=== PATIENT | female | born 1945 | race Caucasian/White ===

== ENCOUNTER 2020-07-19 14:40 | Observation (INO) ==
[2020-07-19] MEDS ORDERED: ONDANSETRON 4 MG/2 ML VIAL IV PRN (14:42)
[2020-07-19] MEDS ORDERED: DOCUSATE SODIUM 100 MG CAPSULE PO PRN (14:42)
[2020-07-19] MEDS ORDERED: NICOTINE 7 MG/24 HR PATCH TRANSDERM PRN (14:52)
[2020-07-19] MEDS: PANTOPRAZOLE 40 MG TABLET PO SCH (18:21)
[2020-07-19 18:25] LABS: Basophils # 0.1 10*3/uL (0.0-0.2); Basophils % 1.2 % (0.0-0.8); Eosinophils # 0.2 10*3/uL (0.0-0.87); Eosinophils % 1.6 % (0.00-10.9); Hematocrit 52.3 VOL% (35.7-47.0); Hemoglobin 18.2 GM/DL (12.0-16.0); Immature Granulocytes % 0.5 %; Immature Granulocytes Absolute 0.05 #; Lymphocytes # 1.2 10*3/uL (1.4-4.0); Lymphocytes % 11.9 % (21.3-54.2); Mean Corpuscular HGB Conc 34.8 GM/DL (32-36); Mean Corpuscular Volume 94.6 FL (87-102); Mean Platelet Volume 10.4 FL (9.6-12.0); Monocytes % 10.2 % (1.7-12.7); Neutrophils % 74.6 % (38.7-73.9); Platelet Count 353 T/CUMM (130-400); Red Blood Count 5.53 MC/CUMM (3.8-5.5); Red Cell Distribution Width 15.4 % (9.3-17.3); White Blood Count 10.2 T/CUMM (4-12)
[2020-07-19] MEDS ORDERED: traMADol 50 MG TABLET PO PRN (18:28)
[2020-07-19 18:48] LABS: Bilirubin,Total 0.5 MG/DL (0.2-1.0); Calcium 10.6 MG/DL (8.5-10.1); Osmolality,Calculated 264.4 MOS/KG (273-304); Total Protein 8.4 G/DL (6.4-8.3)
[2020-07-19 18:50] LABS: Troponin I < 0.015 NG/ML (0.00-0.045)
[2020-07-19] MEDS ORDERED: ENOXAPARIN 40 MG/0.4 ML SYRINGE SUBCUT SCH (21:00)
[2020-07-19] MEDS: GABAPENTIN 300 MG CAPSULE PO SCH (22:19)
[2020-07-19] MEDS: SODIUM CHLORIDE 0.9% 1,000 ML IV SCH (22:29)
[2020-07-19] MEDS: ACETAMINOPHEN 325 MG TABLET PO PRN (22:42)
[2020-07-20 05:58] LABS: Risk Ratio 1.95; VLDL CHOLESTEROL 17.4 MG/DL
[2020-07-20] MEDS ORDERED: hydroCHLOROthiazide 25 MG TABLET PO SCH (09:00)
[2020-07-20] MEDS: GABAPENTIN 300 MG CAPSULE PO SCH (11:52)
[2020-07-20] MEDS: PANTOPRAZOLE 40 MG TABLET PO SCH (11:52)
[2020-07-20] MEDS: SODIUM CHLORIDE 0.9% 1,000 ML IV SCH (12:02)
[2020-07-20] MEDS ORDERED: ASPIRIN EC 81 MG TABLET PO SCH (13:00)
[2020-07-20 13:18] VITALS: BP 148/82
[2020-07-20] MEDS: ACETAMINOPHEN 325 MG TABLET PO PRN (13:26)
[2020-07-20] MEDS ORDERED: GABAPENTIN 300 MG CAPSULE PO SCH (15:00)
[2020-07-20] MEDS ORDERED: amLODIPine 10 MG TABLET PO SCH (16:00)
[2020-07-20] MEDS ORDERED: SIMVASTATIN 10 MG TABLET PO SCH (16:00)
== END 2020-07-20 15:29 | disposition home or self-care (01) ==
LOC: N.TELES
PROVIDERS: ADMIT Family Medicine; ATTEND Family Medicine

== ENCOUNTER 2020-08-16 12:32 | Observation (INO) ==
[2020-08-16 16:56] LABS: Basophils # 0.1 10*3/uL (0.0-0.2); Basophils % 0.8 % (0.0-0.8); Eosinophils # 0.1 10*3/uL (0.0-0.87); Eosinophils % 0.8 % (0.00-10.9); Hematocrit 48.5 VOL% (35.7-47.0); Immature Granulocytes % 0.5 %; Immature Granulocytes Absolute 0.05 #; Lymphocytes % 10.7 % (21.3-54.2); Mean Corpuscular HGB Conc 35.1 GM/DL (32-36); Mean Corpuscular Volume 94.9 FL (87-102); Mean Platelet Volume 9.7 FL (9.6-12.0); Neutrophils % 75.2 % (38.7-73.9); Platelet Count 421 T/CUMM (130-400); Red Blood Count 5.11 MC/CUMM (3.8-5.5); Red Cell Distribution Width 15.1 % (9.3-17.3); White Blood Count 9.5 T/CUMM (4-12)
[2020-08-16 17:14] LABS: Albumin 3.7 G/DL (3.4-5.0); Bilirubin,Total 0.5 MG/DL (0.2-1.0); Calcium 9.7 MG/DL (8.5-10.1); Osmolality,Calculated 257.9 MOS/KG (273-304); Total Protein 7.7 G/DL (6.4-8.3)
[2020-08-16] MEDS ORDERED: ASPIRIN CHEW 81 MG TABLET PO STA (18:09)
[2020-08-16 18:56] LABS: INR 1.1; PT Patient Result 11.4 SECS (9.8-11.9); Partial Thromboplastin Time 32.7 SECS (23.9-33.8)
[2020-08-16] MEDS ORDERED: ENOXAPARIN 60 MG/0.6 ML SYRINGE SUBCUT STA (20:15)
[2020-08-16] MEDS ORDERED: MAGNESIUM SULF RIDER 2 GM in PREMIX 1 EACH IV PRN (20:15)
[2020-08-16] MEDS ORDERED: PANTOPRAZOLE 40 MG VIAL IV STA (20:15)
[2020-08-16] MEDS ORDERED: NITROGLYCERIN 2% OINT 1 INCH/GM PACK TOP STA (20:15)
[2020-08-16] MEDS ORDERED: MAGNESIUM SULF RIDER 4 GM in PREMIX 1 EACH IV PRN (20:15)
[2020-08-17] MEDS ORDERED: SODIUM CHLORIDE 0.9% 1,000 ML IV SCH (07:30)
[2020-08-17] MEDS ORDERED: diphenhydrAMINE CAP 25 MG CAPSULE PO ONE (07:32)
[2020-08-17] MEDS ORDERED: DIAZEPAM 5 MG TABLET PO ONE (07:32)
[2020-08-17] MEDS ORDERED: POTASSIUM CHLORIDE RIDER 10 MEQ in PREMIX 1 EACH IV PRN (07:32)
[2020-08-17] MEDS ORDERED: NITROGLYCERIN SL 0.4 MG TABLET SL PRN (07:34)
[2020-08-17] MEDS ORDERED: traMADol 50 MG TABLET PO PRN (07:34)
[2020-08-17] MEDS ORDERED: ZALEPLON 5 MG CAPSULE PO PRN (07:35)
[2020-08-17] MEDS ORDERED: hydrALAZINE 20 MG/1 ML VIAL IV PRN (07:35)
[2020-08-17] MEDS ORDERED: BISACODYL 5 MG TABLET PO PRN (07:35)
[2020-08-17] MEDS ORDERED: MORPHINE 4 MG/1 ML VIAL IV PRN (07:35)
[2020-08-17] MEDS ORDERED: ALUMINUM/MAGNES/SIMETH MAX STR 30 ML UDCUP PO PRN (07:35)
[2020-08-17] MEDS ORDERED: PROMETHAZINE 25 MG TABLET PO PRN (07:35)
[2020-08-17] MEDS ORDERED: guaiFENesin/DM ER 600-30 MG TABLET PO PRN (07:35)
[2020-08-17] MEDS ORDERED: ONDANSETRON 4 MG/2 ML VIAL IV PRN (07:35)
[2020-08-17] MEDS: NITROGLYCERIN 2% OINT 1 INCH/GM PACK TOP SCH ×4 (08:04→17:07)
[2020-08-17] MEDS ORDERED: LIDOCAINE 1% 20 ML VIAL ONE ×2 (08:47→09:32)
[2020-08-17] MEDS ORDERED: fentaNYL 100 MCG/2 ML VIAL ONE (08:47)
[2020-08-17] MEDS ORDERED: MIDAZOLAM 2 MG/2 ML VIAL ONE (08:47)
[2020-08-17] MEDS ORDERED: amLODIPine 5 MG TABLET PO SCH (09:00)
[2020-08-17] MEDS ORDERED: METOPROLOL TARTRATE 25 MG TABLET PO SCH (09:00)
[2020-08-17] MEDS ORDERED: HYDROmorphone 2 MG/1 ML VIAL ONE (09:13)
[2020-08-17] MEDS ORDERED: HEPARIN 5,000 UNIT/1 ML VIAL ONE (09:54)
[2020-08-17] MEDS: GABAPENTIN 300 MG CAPSULE PO SCH ×3 (12:49→21:21)
[2020-08-17] MEDS: PANTOPRAZOLE 40 MG TABLET PO SCH (12:59)
[2020-08-17] MEDS: LOSARTAN 25 MG TABLET PO SCH (13:00)
[2020-08-17] MEDS: ASPIRIN EC 81 MG TABLET PO SCH (13:00)
[2020-08-17] MEDS: CYANOCOBALAMIN 500 MCG TABLET PO SCH (13:00)
[2020-08-17] MEDS: atenoloL 25 MG TABLET PO SCH ×2 (13:00→21:27)
[2020-08-17] MEDS: CLOPIDOGREL 75 MG TABLET PO SCH (13:00)
[2020-08-17] MEDS: MELOXICAM 7.5 MG TABLET PO SCH (13:02)
[2020-08-17] MEDS ORDERED: CHOLECALCIFEROL 5,000 UNIT TABLET PO SCH (21:00)
[2020-08-17] MEDS: CALCIUM (CARBONATE)/VITAMIN D 600 MG-400 UNIT TABLET PO SCH (21:21)
[2020-08-17] MEDS: ACETAMINOPHEN 500 MG TABLET PO SCH (21:22)
[2020-08-18 06:13] LABS: Osmolality,Calculated 267.4 MOS/KG (273-304)
[2020-08-18 06:16] LABS: Basophils # 0.1 10*3/uL (0.0-0.2); Basophils % 0.7 % (0.0-0.8); Eosinophils # 0.2 10*3/uL (0.0-0.87); Eosinophils % 2.9 % (0.00-10.9); Immature Granulocytes % 0.5 %; Immature Granulocytes Absolute 0.04 #; Lymphocytes # 1.1 10*3/uL (1.4-4.0); Lymphocytes % 13.1 % (21.3-54.2); Mean Corpuscular HGB Conc 33.8 GM/DL (32-36); Mean Corpuscular Volume 97.3 FL (87-102); Mean Platelet Volume 9.8 FL (9.6-12.0); Monocytes % 13.1 % (1.7-12.7); Neutrophils % 69.7 % (38.7-73.9); Platelet Count 341 T/CUMM (130-400); Red Cell Distribution Width 15.7 % (9.3-17.3); White Blood Count 8.2 T/CUMM (4-12)
[2020-08-18 06:21] LABS: Hemoglobin 13.2 GM/DL (12.0-16.0); Red Blood Count 4.01 MC/CUMM (3.8-5.5)
[2020-08-18] MEDS ORDERED: MULTIVITAMIN (CENTRUM) TABLET PO SCH (09:00)
[2020-08-18] MEDS ORDERED: SIMVASTATIN 10 MG TABLET PO SCH (09:00)
[2020-08-18] MEDS ORDERED: PYRIDOXINE 100 MG TABLET PO SCH (09:00)
[2020-08-18] MEDS ORDERED: MAGNESIUM SULF RIDER 2 GM in PREMIX 1 EACH IV ONE (09:01)
[2020-08-18] MEDS ORDERED: POTASSIUM CHLORIDE 20 MEQ TABLET PO ONE (09:01)
[2020-08-18] MEDS: CALCIUM (CARBONATE)/VITAMIN D 600 MG-400 UNIT TABLET PO SCH (09:22)
[2020-08-18] MEDS: GABAPENTIN 300 MG CAPSULE PO SCH ×2 (09:22→14:34)
[2020-08-18] MEDS: CLOPIDOGREL 75 MG TABLET PO SCH (09:23)
[2020-08-18] MEDS: CYANOCOBALAMIN 500 MCG TABLET PO SCH (09:23)
[2020-08-18] MEDS: PANTOPRAZOLE 40 MG TABLET PO SCH (09:23)
[2020-08-18] MEDS: LOSARTAN 25 MG TABLET PO SCH (09:24)
[2020-08-18] MEDS: MELOXICAM 7.5 MG TABLET PO SCH (09:24)
[2020-08-18] MEDS: ASPIRIN EC 81 MG TABLET PO SCH (09:24)
[2020-08-18] MEDS: atenoloL 25 MG TABLET PO SCH (09:24)
[2020-08-18] MEDS: ACETAMINOPHEN 500 MG TABLET PO SCH (12:29)
[2020-08-18 16:38] VITALS: BP 130/65
== END 2020-08-18 16:20 | disposition home or self-care (01) ==
LOC: N.ED 12:32 → N.EDINP 12:32 → N.TELES 08-17 08:30
PROVIDERS: ADMIT Internal Medicine Cardiovascular Disease; ATTEND Internal Medicine Cardiovascular Disease
PROC: CLCCHCL (ICD-10-PCS; 2020-08-17 08:15)

== ENCOUNTER 2021-01-05 06:53 | Inpatient (IN) ==
[2020-12-31 12:04] LABS: Basophils # 0.1 10*3/uL (0.0-0.2); Basophils % 1.4 % (0.0-0.8); Eosinophils # 0.2 10*3/uL (0.0-0.87); Eosinophils % 3.9 % (0.00-10.9); Hematocrit 40.8 VOL% (35.7-47.0); Hemoglobin 12.9 GM/DL (12.0-16.0); Immature Granulocytes % 0.3 %; Immature Granulocytes Absolute 0.02 #; Lymphocytes # 1.1 10*3/uL (1.4-4.0); Lymphocytes % 17.8 % (21.3-54.2); Mean Corpuscular HGB Conc 31.6 GM/DL (32-36); Mean Corpuscular Volume 99.8 FL (87-102); Neutrophils % 62.6 % (38.7-73.9); Platelet Count 316 T/CUMM (130-400); Red Blood Count 4.09 MC/CUMM (3.8-5.5); Red Cell Distribution Width 15.6 % (9.3-17.3); White Blood Count 5.9 T/CUMM (4-12)
[2020-12-31 12:24] LABS: Alanine Aminotransferase 14 U/L (13-56); Albumin 3.6 G/DL (3.4-5.0); Alkaline Phosphatase 74 U/L (45-117); Aspartate Amino Transferase 15 U/L (0-37); Bilirubin,Total < 0.39 MG/DL (0.2-1.0); Blood Urea Nitrogen 13 MG/DL (7-18); Calcium 9.1 MG/DL (8.5-10.1); Carbon Dioxide 29 MMOL/L (21-32); Estimated Glom Filtration Rate 81 ML/MIN; Glucose 108 MG/DL (74-106); Osmolality,Calculated 277.5 MOS/KG (273-304); Sodium 139 MMOL/L (136-145); Total Protein 6.8 G/DL (6.4-8.2)
[2020-12-31 12:53] LABS: PT Patient Result 11.5 SECS (9.8-11.9)
[~2021-01-05 06:53] MED LIST: LIDOCAINE 2% 5 ML VIAL ONE; MIDAZOLAM 2 MG/2 ML VIAL ONE; ROCURONIUM 50 MG/5 ML VIAL IV ONE; ceFAZolin 2,000 MG in PREMIX 1 EACH IV ONE; fentaNYL 100 MCG/2 ML VIAL ONE; propofoL 200 MG/20 ML VIAL IV ONE
[2021-01-05] MEDS ORDERED: DIAZEPAM 5 MG TABLET PO ONE (07:06)
[2021-01-05] MEDS ORDERED: GABAPENTIN 400 MG CAPSULE PO ONE (07:06)
[2021-01-05] MEDS ORDERED: FAMOTIDINE 20 MG TABLET PO ONE (07:06)
[2021-01-05] MEDS ORDERED: ACETAMINOPHEN 500 MG TABLET PO ONE (07:06)
[2021-01-05] MEDS ORDERED: ALBUTEROL/IPRATROPIUM 3 ML NEB RESP TX STA (07:11)
[2021-01-05] MEDS ORDERED: LACTATED RINGERS 1,000 ML IV SCH (08:00)
[2021-01-05] MEDS ORDERED: ROPIVACAINE 0.5% 30 ML VIAL ONE (08:17)
[2021-01-05] MEDS ORDERED: DEXAMETHASONE 4 MG/1 ML VIAL ONE ×2 (08:17→10:18)
[2021-01-05] MEDS ORDERED: LIDOCAINE 1% 5 ML VIAL ONE (08:21)
[2021-01-05] MEDS ORDERED: BUPIVACAINE 0.5% 50 ML VIAL ONE (08:40)
[2021-01-05] MEDS ORDERED: TISSUE ADHESIVE 1 EACH APPLICATOR TOP ONE (08:40)
[2021-01-05] MEDS ORDERED: VANCOMYCIN 500 MG VIAL ONE (08:40)
[2021-01-05] MEDS ORDERED: HEPARIN 5,000 UNIT/1 ML VIAL ONE ×2 (08:40→08:41)
[2021-01-05] MEDS ORDERED: ePHEDrine 50 MG/ML VIAL ONE (09:12)
[2021-01-05] MEDS ORDERED: HEPARIN 10,000 UNIT/10 ML VIAL ONE (09:19)
[2021-01-05] MEDS ORDERED: PHENYLEPHRINE 1 MG/10 ML SYRINGE IV ONE (10:17)
[2021-01-05] MEDS ORDERED: ONDANSETRON 4 MG/2 ML VIAL ONE (10:18)
[2021-01-05] MEDS ORDERED: NEOSTIGMINE 10 MG/10 ML VIAL ONE ×3 (10:20→10:21)
[2021-01-05] MEDS ORDERED: GLYCOPYRROLATE 0.4 MG/2 ML VIAL ONE (10:20)
[2021-01-05] MEDS ORDERED: ONDANSETRON 4 MG/2 ML VIAL IV PRN ×2 (10:41→11:20)
[2021-01-05] MEDS ORDERED: traMADol 50 MG TABLET PO PRN (10:44)
[2021-01-05] MEDS ORDERED: NON-FORMULARY MEDICATION (Umeclidinium [Incruse Ellipta] 62.5 mcg/actuation Blister With D INH PRN (10:44)
[2021-01-05] MEDS ORDERED: NITROGLYCERIN SL 0.4 MG TABLET SL PRN (10:44)
[2021-01-05] MEDS ORDERED: HYDROmorphone 2 MG/1 ML VIAL ONE (11:09)
[2021-01-05] MEDS ORDERED: HYDROmorphone 2 MG/1 ML VIAL IV PRN (11:20)
[2021-01-05] MEDS: LACTATED RINGERS 1,000 ML IV SCH ×2 (11:50→23:52)
[2021-01-05] MEDS: CALCIUM (CITRATE)/VITAMIN D 200 MG-125 UNIT TABLET PO SCH (16:31)
[2021-01-05] MEDS: PANTOPRAZOLE 40 MG TABLET PO SCH (16:31)
[2021-01-05] MEDS: GABAPENTIN 300 MG CAPSULE PO SCH ×2 (16:31→21:28)
[2021-01-05] MEDS ORDERED: ROSUVASTATIN 20 MG TABLET PO SCH (21:00)
[2021-01-05] MEDS: ACETAMINOPHEN 325 MG TABLET PO SCH (21:28)
[2021-01-05] MEDS: cilostazoL 50 MG TABLET PO SCH (21:28)
[2021-01-06] MEDS ORDERED: ENOXAPARIN 40 MG/0.4 ML SYRINGE SUBCUT SCH (05:00)
[2021-01-06] MEDS: LACTATED RINGERS 1,000 ML IV SCH (06:18)
[2021-01-06 06:36] LABS: Hematocrit 34.4 VOL% (35.7-47.0); Hemoglobin 10.7 GM/DL (12.0-16.0)
[2021-01-06 06:52] LABS: Calcium 8.8 MG/DL (8.5-10.1); Osmolality,Calculated 275.5 MOS/KG (273-304); Potassium 4.1 MMOL/L (3.5-5.1)
[2021-01-06] MEDS ORDERED: IRON (CARBONYL) 45 MG TABLET PO SCH (08:00)
[2021-01-06] MEDS ORDERED: atenoloL 25 MG TABLET PO SCH (09:00)
[2021-01-06] MEDS ORDERED: ASPIRIN EC 81 MG TABLET PO SCH (09:00)
[2021-01-06] MEDS ORDERED: MONTELUKAST 10 MG TABLET PO SCH (09:00)
[2021-01-06] MEDS ORDERED: CLOPIDOGREL 75 MG TABLET PO SCH (09:00)
[2021-01-06] MEDS ORDERED: DOCUSATE SODIUM 100 MG CAPSULE PO SCH (09:00)
[2021-01-06] MEDS ORDERED: FUROSEMIDE 40 MG TABLET PO SCH (09:00)
[2021-01-06] MEDS ORDERED: Umeclidinium-Vilanterol [Anoro Ellipta] 62.5-25 mcg/actuation Bl INH SCH (09:00)
[2021-01-06] MEDS ORDERED: CHOLECALCIFEROL 5,000 UNIT TABLET PO SCH (09:00)
[2021-01-06] MEDS: CALCIUM (CITRATE)/VITAMIN D 200 MG-125 UNIT TABLET PO SCH (09:41)
[2021-01-06] MEDS: GABAPENTIN 300 MG CAPSULE PO SCH (09:41)
[2021-01-06] MEDS: ACETAMINOPHEN 325 MG TABLET PO SCH (09:41)
[2021-01-06] MEDS: PANTOPRAZOLE 40 MG TABLET PO SCH (09:42)
[2021-01-06] MEDS: cilostazoL 50 MG TABLET PO SCH (09:42)
[2021-01-06 11:54] VITALS: BP 114/62
[2021-01-06] MEDS ORDERED: CYANOCOBALAMIN 500 MCG TABLET PO SCH (12:00)
[2021-01-06] MEDS ORDERED: MULTIVITAMIN (CENTRUM) TABLET PO SCH (13:00)
== END 2021-01-06 15:10 | disposition home or self-care (01) | DRG 272 ==
LOC: N.OR 06:53 → N.SDSINP 06:56 → N.3E 11:50
PROVIDERS: ADMIT Surgery; ATTEND Surgery

== ENCOUNTER 2022-06-26 14:45 | Inpatient (IN) ==
[2022-06-26] MEDS ORDERED: ACETAMINOPHEN 325 MG TABLET PO PRN (14:54)
[2022-06-26] MEDS ORDERED: ONDANSETRON 4 MG/2 ML VIAL IV PRN (14:54)
[2022-06-26] MEDS ORDERED: DOCUSATE SODIUM 100 MG CAPSULE PO PRN (14:56)
[2022-06-26] MEDS ORDERED: traMADol 50 MG TABLET PO PRN (15:27)
[2022-06-26 16:29] LABS: Basophils # 0.1 10*3/uL (0.0-0.2); Basophils % 1.1 % (0.0-0.8); Eosinophils # 0.1 10*3/uL (0.0-0.87); Eosinophils % 1.8 % (0.00-10.9); Hematocrit 53.8 VOL% (35.7-47.0); Immature Granulocytes % 0.4 %; Immature Granulocytes Absolute 0.02 #; Lymphocytes # 1.1 10*3/uL (1.4-4.0); Lymphocytes % 20.5 % (21.3-54.2); Mean Corpuscular HGB Conc 31.6 GM/DL (32-36); Mean Corpuscular Volume 104.9 FL (87-102); Monocytes # 0.9 10*3/uL (0.11-0.8); Monocytes % 16.5 % (1.7-12.7); Neutrophils % 59.7 % (38.7-73.9); Platelet Count 237 T/CUMM (130-400); Red Blood Count 5.13 MC/CUMM (3.8-5.5); Red Cell Distribution Width 17.6 % (9.3-17.3); White Blood Count 5.5 T/CUMM (4-12)
[2022-06-26 16:50] LABS: Bilirubin,Total 0.9 MG/DL (0.20-1.00); Calcium 10.5 MG/DL (8.5-10.1); Potassium 3.9 MMOL/L (3.5-5.1); Total Protein 7.3 G/DL (6.4-8.2)
[2022-06-26 16:53] LABS: Vitamin B12 > 2000 PG/ML (211-911)
[2022-06-26] MEDS ORDERED: NITROGLYCERIN SL 0.4 MG TABLET SL PRN (17:03)
[2022-06-26 17:08] LABS: Band Neutrophils 3 % (0-10); Eosinophils 2 % (0-10); Lymphocytes 22 % (20-55); Total Cells Counted 100
[2022-06-26 17:09] LABS: Macrocytosis Slight; Platelet Estimate Normal
[2022-06-26] MEDS: SODIUM CHLORIDE 0.9% 1,000 ML IV SCH (18:47)
[2022-06-26] MEDS: methylPREDNISolone SOD SUC 40 MG/1 ML VIAL IV SCH (18:47)
[2022-06-26] MEDS: ALBUTEROL/IPRATROPIUM 3 ML NEB RESP TX SCH (19:00)
[2022-06-26] MEDS: ROSUVASTATIN 20 MG TABLET PO SCH (21:03)
[2022-06-26] MEDS: GABAPENTIN 300 MG CAPSULE PO SCH (21:03)
[2022-06-26] MEDS: cilostazoL 100 MG TABLET PO SCH (21:03)
[2022-06-27] MEDS: ALBUTEROL/IPRATROPIUM 3 ML NEB RESP TX SCH ×4 (01:06→19:30)
[2022-06-27] MEDS: methylPREDNISolone SOD SUC 40 MG/1 ML VIAL IV SCH ×3 (01:07→17:02)
[2022-06-27 05:23] LABS: Basophils % 0.4 % (0.0-0.8); Hematocrit 47.4 VOL% (35.7-47.0); Hemoglobin 15.1 GM/DL (12.0-16.0); Immature Granulocytes % 0.4 %; Immature Granulocytes Absolute 0.01 #; Lymphocytes # 0.3 10*3/uL (1.4-4.0); Lymphocytes % 12.3 % (21.3-54.2); Mean Corpuscular HGB Conc 31.9 GM/DL (32-36); Mean Corpuscular Volume 104.2 FL (87-102); Monocytes # 0.1 10*3/uL (0.11-0.8); Monocytes % 3.8 % (1.7-12.7); Neutrophils % 83.1 % (38.7-73.9); Platelet Count 196 T/CUMM (130-400); Red Blood Count 4.55 MC/CUMM (3.8-5.5); Red Cell Distribution Width 16.8 % (9.3-17.3); White Blood Count 2.6 T/CUMM (4-12)
[2022-06-27 05:42] LABS: Blood Urea Nitrogen 24 MG/DL (7-18); Calcium 9.4 MG/DL (8.5-10.1); Carbon Dioxide 31 MMOL/L (21-32); Chloride 99 MMOL/L (98-107); Glucose 151 MG/DL (74-106); Sodium 136 MMOL/L (136-145)
[2022-06-27 05:54] LABS: Bilirubin,Urine Negative (Negative); Blood, Urine Small mg/dL (Negative); Glucose,Urine (UA) Negative (Negative); Hyaline Casts,Urine 3 /LPF (0-3); Ketones,Urine Negative (Negative); Mucus,Urine Occasional /LPF (Occasional); Nitrite,Urine Negative (Negative); Protein,Urine 100 mg/dL (Negative); RBC,Urine 1 /HPF (0-4); Squamous Epithelial Cell,Urine Occasional /HPF (0-10); Urine Appearance Slightly Hazy (Clear); Urine Color Yellow (Yellow); Urine Specific Gravity 1.018 (1.001-1.035)
[2022-06-27] MEDS ORDERED: POTASSIUM CHLORIDE 20 MEQ TABLET PO ONE ×2 (06:42→07:30)
[2022-06-27] MEDS ORDERED: MONTELUKAST 10 MG TABLET PO SCH (09:00)
[2022-06-27] MEDS: ASPIRIN EC 81 MG TABLET PO SCH (09:42)
[2022-06-27] MEDS: CLOPIDOGREL 75 MG TABLET PO SCH (09:42)
[2022-06-27] MEDS: DOCUSATE SODIUM 100 MG CAPSULE PO SCH (09:42)
[2022-06-27] MEDS: GABAPENTIN 300 MG CAPSULE PO SCH ×3 (09:42→20:34)
[2022-06-27] MEDS: PANTOPRAZOLE 40 MG TABLET PO SCH (09:42)
[2022-06-27] MEDS: cilostazoL 100 MG TABLET PO SCH ×2 (09:42→20:35)
[2022-06-27] MEDS: FUROSEMIDE 80 MG TABLET PO SCH (09:42)
[2022-06-27] MEDS: atenoloL 25 MG TABLET PO SCH (09:45)
[2022-06-27] MEDS: metOLazone 2.5 MG TABLET PO SCH (09:45)
[2022-06-27] MEDS: OLODATEROL INH SCH (09:46)
[2022-06-27] MEDS: ACTUATION MIST INH SCH (09:46)
[2022-06-27] MEDS ORDERED: ALBUTEROL/IPRATROPIUM 3 ML NEB RESP TX PRN (10:49)
[2022-06-27] MEDS: cefTRIAXone 1,000 MG in SODIUM CHLORIDE 0.9% 100 ML IV SCH (13:14)
[2022-06-27] MEDS: SODIUM CHLORIDE 0.9% 1,000 ML IV SCH (17:49)
[2022-06-27] MEDS: ROSUVASTATIN 20 MG TABLET PO SCH (20:34)
[2022-06-27] MEDS: MONTELUKAST 10 MG TABLET PO SCH (20:35)
[2022-06-28] MEDS: ALBUTEROL/IPRATROPIUM 3 ML NEB RESP TX SCH ×4 (00:30→20:05)
[2022-06-28] MEDS: methylPREDNISolone SOD SUC 40 MG/1 ML VIAL IV SCH ×3 (01:23→17:05)
[2022-06-28 04:59] LABS: Hematocrit 47.6 VOL% (35.7-47.0); Hemoglobin 15.1 GM/DL (12.0-16.0); Immature Granulocytes % 0.2 %; Immature Granulocytes Absolute 0.01 #; Lymphocytes # 0.4 10*3/uL (1.4-4.0); Lymphocytes % 7.6 % (21.3-54.2); Mean Corpuscular HGB Conc 31.7 GM/DL (32-36); Mean Corpuscular Volume 104.4 FL (87-102); Monocytes # 0.4 10*3/uL (0.11-0.8); Neutrophils % 84.2 % (38.7-73.9); Platelet Count 205 T/CUMM (130-400); Red Blood Count 4.56 MC/CUMM (3.8-5.5); Red Cell Distribution Width 17.1 % (9.3-17.3); White Blood Count 4.9 T/CUMM (4-12)
[2022-06-28 05:17] LABS: Calcium 9.7 MG/DL (8.5-10.1); Osmolality,Calculated 281.7 MOS/KG (273-304); Potassium 3.6 MMOL/L (3.5-5.1)
[2022-06-28] MEDS: DOCUSATE SODIUM 100 MG CAPSULE PO SCH (09:28)
[2022-06-28] MEDS: GABAPENTIN 300 MG CAPSULE PO SCH ×3 (09:29→20:26)
[2022-06-28] MEDS: MONTELUKAST 10 MG TABLET PO SCH ×2 (09:29→20:26)
[2022-06-28] MEDS: PANTOPRAZOLE 40 MG TABLET PO SCH (09:29)
[2022-06-28] MEDS: FUROSEMIDE 80 MG TABLET PO SCH (09:30)
[2022-06-28] MEDS: ASPIRIN EC 81 MG TABLET PO SCH (09:30)
[2022-06-28] MEDS: metOLazone 2.5 MG TABLET PO SCH (09:30)
[2022-06-28] MEDS: CLOPIDOGREL 75 MG TABLET PO SCH (09:30)
[2022-06-28] MEDS: atenoloL 25 MG TABLET PO SCH (09:30)
[2022-06-28] MEDS: cefTRIAXone 1,000 MG in SODIUM CHLORIDE 0.9% 100 ML IV SCH (09:33)
[2022-06-28] MEDS: cilostazoL 100 MG TABLET PO SCH ×2 (09:34→20:26)
[2022-06-28] MEDS: OLODATEROL INH SCH (09:35)
[2022-06-28] MEDS: ACTUATION MIST INH SCH (09:35)
[2022-06-28] MEDS: SODIUM CHLORIDE 0.9% 1,000 ML IV SCH (09:43)
[2022-06-28] MEDS ORDERED: FUROSEMIDE 100 MG/10 ML VIAL IV ONE (13:00)
[2022-06-28] MEDS: POTASSIUM CHLORIDE 20 MEQ TABLET PO SCH ×2 (13:47→20:26)
[2022-06-28] MEDS: ROSUVASTATIN 20 MG TABLET PO SCH (20:26)
[2022-06-29] MEDS: ALBUTEROL/IPRATROPIUM 3 ML NEB RESP TX SCH ×2 (01:36→07:35)
[2022-06-29] MEDS: methylPREDNISolone SOD SUC 40 MG/1 ML VIAL IV SCH ×2 (02:15→09:48)
[2022-06-29 06:03] LABS: Basophils % 0.2 % (0.0-0.8); Hematocrit 47.3 VOL% (35.7-47.0); Hemoglobin 15.3 GM/DL (12.0-16.0); Immature Granulocytes % 0.5 %; Immature Granulocytes Absolute 0.03 #; Lymphocytes # 0.4 10*3/uL (1.4-4.0); Lymphocytes % 6.9 % (21.3-54.2); Mean Corpuscular HGB Conc 32.3 GM/DL (32-36); Mean Corpuscular Volume 102.6 FL (87-102); Mean Platelet Volume 10.2 FL (9.6-12.0); Monocytes # 0.6 10*3/uL (0.11-0.8); Monocytes % 10.8 % (1.7-12.7); Neutrophils % 81.6 % (38.7-73.9); Platelet Count 199 T/CUMM (130-400); Red Blood Count 4.61 MC/CUMM (3.8-5.5); Red Cell Distribution Width 16.4 % (9.3-17.3); White Blood Count 5.5 T/CUMM (4-12)
[2022-06-29 06:20] LABS: Calcium 9.7 MG/DL (8.5-10.1); Osmolality,Calculated 273.4 MOS/KG (273-304); Potassium 3.2 MMOL/L (3.5-5.1)
[2022-06-29] MEDS: cefTRIAXone 1,000 MG in SODIUM CHLORIDE 0.9% 100 ML IV SCH (09:44)
[2022-06-29] MEDS: GABAPENTIN 300 MG CAPSULE PO SCH (09:45)
[2022-06-29] MEDS: cilostazoL 100 MG TABLET PO SCH (09:45)
[2022-06-29] MEDS: POTASSIUM CHLORIDE 20 MEQ TABLET PO SCH (09:45)
[2022-06-29] MEDS: metOLazone 2.5 MG TABLET PO SCH (09:46)
[2022-06-29] MEDS: CLOPIDOGREL 75 MG TABLET PO SCH (09:46)
[2022-06-29] MEDS: FUROSEMIDE 80 MG TABLET PO SCH (09:46)
[2022-06-29] MEDS: MONTELUKAST 10 MG TABLET PO SCH (09:46)
[2022-06-29] MEDS: atenoloL 25 MG TABLET PO SCH (09:46)
[2022-06-29] MEDS: ASPIRIN EC 81 MG TABLET PO SCH (09:47)
[2022-06-29] MEDS: DOCUSATE SODIUM 100 MG CAPSULE PO SCH (09:48)
[2022-06-29] MEDS: PANTOPRAZOLE 40 MG TABLET PO SCH (09:51)
[2022-06-29] MEDS: OLODATEROL INH SCH (09:53)
[2022-06-29] MEDS: ACTUATION MIST INH SCH (09:53)
[2022-06-29 11:44] VITALS: BP 131/70
== END 2022-06-29 13:33 | disposition home or self-care (01) | DRG 190 ==
LOC: N.5E
PROVIDERS: ADMIT Family Medicine; ATTEND Family Medicine